=== PATIENT | male | born 1985 | race African-American/Black ===

== ENCOUNTER 2017-07-17 15:00 | Emergency (ER) | payer MEDICARE, MEDICAID ==
[2017-07-17 15:48] VITALS: BP 134/85
--- NOTE | 2017-07-17 16:42 | UC ---
Mahin Pak Natalie, scribed for Venancio Carney MD on 07/17/17 at 1601 . Throat Pain/Nasal James HPI - HPI Summary HPI Summary: The patient is a 32 y/o M presenting to [facility] c/o sore throat that began on 07/10. He additionally c/o difficulty swallowing and occasional cough. Patient denies fevers and chills. PMHx: HTN, seizures, diabetes. No smoking, occasional alcohol. - History of Current Complaint Chief Complaint: UCRespiratory Stated Complaint: SORE THROAT Time Seen by Provider: 07/17/17 15:43 Hx Obtained From: Patient Onset/Duration: Sudden Onset, Lasting Days - starting 07/10/17, Still Present Severity: Mild Pain Intensity: 0 Pain Scale Used: 0-10 Numeric Associated Signs & Symptoms: Positive: Other - POSITIVE: difficulty swallowing, occasional cough; NEGATIVE: fevers, chills - Allergies/Home Medications Allergies/Adverse Reactions: Allergies Allergy/AdvReac Type Severity Reaction Status Date / Time MS Penicillins [Penicillins] Allergy Unknown Unknown Verified 07/17/17 15:48 Reaction Details Home Medications: Home Medications Losartan TAB* [Cozaar TAB*] 100 mg PO DAILY 07/17/17 [History Confirmed 07/17/17 ] amLODIPine TAB* [Norvasc 5 mg TAB*] 2.5 mg PO DAILY 07/17/17 [History Confirmed 07/17/17] PMH/Surg Hx/FS Hx/Imm Hx Endocrine History: Diabetes Cardiovascular History: Hypertension Neurological History: Seizures - Surgical History Surgical History: Yes Surgery Procedure, Year, and Place: TONSILLECTOMY. BILATERAL LEG SURGERY - Family History Known Family History: Positive: Diabetes - Social History Alcohol Use: Occasionally Substance Use Type: Marijuana Substance Use Comment - Amount & Last Used: been a least a year Smoking Status (MU): Never Smoked Tobacco Review of Systems Constitutional: Other - NEGATIVE: fevers, chills ENT: Sore Throat, Other - difficulty swallowing Respiratory: Cough All Other Systems Reviewed And Are Negative: Yes Physical Exam - Summary Physical Exam Summary: VITAL SIGNS: Reviewed. GENERAL: Patient is a well-developed and nourished male who is lying comfortable in the stretcher. Patient is not in any acute respiratory distress. HEAD AND FACE: Normocephalic EYES: PERRLA, EOMI x 2. EARS: Hearing grossly intact. MOUTH: Erythema in pharynx, no exudates. NECK: Supple, trachea is midline, no adenopathy, no JVD, no carotid bruit. CHEST: Symmetric, no tenderness at palpation LUNGS: Clear to auscultation bilaterally. No wheezing or crackles. CVS: Regular rate and rhythm, S1 and S2 present, no murmurs or gallops appreciated. ABDOMEN: Soft, non-tender. Bowel sounds are normal. No abdominal abnormal pulsations. EXTREMITIES: Full ROM in all major joints, no edema, no cyanosis or clubbing. Short limbs. NEURO: Alert and oriented x 3. No acute neurological deficits. Speech is normal and follows commands. SKIN: Dry and warm Triage Information Reviewed: Yes Vital Signs: Initial Vital Signs Temp 97.9 F 07/17/17 15:43 Pulse 98 07/17/17 15:43 Resp 18 07/17/17 15:43 BP 134/85 07/17/17 15:43 Pulse Ox 98 07/17/17 15:43 Vital Signs Reviewed: Yes Throat Pain/Nasal Course/Dx - Course Course Of Treatment: The patient is a 32 y/o M presenting to [facility] c/o sore throat that began on 07/10/17. He additionally c/o difficulty swallowing and occasional cough. Patient denies fevers and chills. PMHx: HTN, seizures, diabetes. No smoking, occasional alcohol. Blood pressure over 120/80: The patient was found to have increased BP in UC. The patient will follow up with PCP for better control of BP. Strep test is negative. Symptoms are likely due to viral pharyngitis. He will be prescribed Ibuprofen. Patient will be dischaged home with prescription. I discussed all the findings and test results with the patient. Patient was instructed to return to the urgent care or go to ER immediately if any of the symptoms return or worsens. Plan of care was discussed with the patient, and patient understands and agrees. All questions were answered to patient satisfaction. There were no further complaints or concerns. - Differential Dx/Diagnosis Provider Diagnoses: viral pharyngitis Discharge - Sign-Out/Discharge Documenting (check all that apply): Discharge/Admit/Transfer - Discharge Plan Condition: Stable Disposition: HOME Prescriptions: Ibuprofen TAB* [Motrin TAB* 600 MG] 600 mg PO Q8H PRN #30 tab PRN Reason: Pain Patient Education Materials: Pharyngitis (ED) Referrals: Maddy Regan MD [Primary Care Provider] - Additional Instructions: FOLLOW UP WITH YOUR PRIMARY CARE PROVIDER WITHIN ONE WEEK FOR HIGH BLOOD PRESSURE NOTED TODAY. RETURN TO URGENT CARE OR THE ED FOR ANY WORSENING OR NEW SYMPTOMS. - Billing Disposition and Condition Condition: STABLE Disposition: HOME The documentation as recorded by the Mahin armstrong Natalie accurately reflects the service I personally performed and the decisions made by , Venancio Carney MD.
== END 2017-07-17 16:24 | disposition home or self-care (01) ==
LOC: UCEAST 15:00
DX: J02.8 Acute pharyngitis due to other specified organisms (principal); E11.9 Type 2 diabetes mellitus without complications; Z79.84 Long term (current) use of oral hypoglycemic drugs; I10 Essential (primary) hypertension; R56.9 Unspecified convulsions; Z88.0 Allergy status to penicillin
CPT/HCPCS: 87651; 99212; G0463

== ENCOUNTER 2019-06-02 19:01 | Emergency (ER) | payer OTHER ==
--- OUTSIDE RECORDS SUMMARY | 2019-06-02 19:06 | XMS REPORT | Summary of Care ---
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 Reason for Visit Reason Comments Follow Up pt presents for follow up with diabetes Encounter Details Date Type Department Care Team Description 04/05/2019 Office Visit Rob Regan, Uncontrolled type 2 diabetes mellitus with retinopathy (HCC) (Primary Dx); Practice MD Maddy Essential hypertension [address] [place], [place] [id number] [place] [address] [phone] Allergies Active Allergy Reactions Severity Noted Date Comments Nuts Rash 08/15/2014 Penicillins 04/03/2007 RASH documented as of this encounter (statuses as of 04/05/2019) Medications Medication Sig Dispensed Refills Start Date End Date Status divalproex (DEPAKOTE Take 250 mg by 0 Active ER) 250 MG PO TB24 mouth TWICE DAILY. albuterol Take 2 Puff by 0 Active (PROVENTIL,VENTOLIN) inhalation PRN 90 MCG/ACT IN AERS ONETOUCH DELICA 1 Each by Does not 200 Each 5 08/21/2013 Active LANCETS Does not apply route FOUR apply Misc TIMES DAILY. Uses FOUR times daily 250.01 BD ULTRA-FINE PEN USE DIRECTED 100 Each 08/08/2018 Active NEEDLES 29G X 12.7MM Does not apply MiscIndications: Type 2 diabetes mellitus without complication (HCC) Blood Glucose 1 Each by Does not 1 Each 0 09/28/2018 Active Monitoring Suppl apply route FOUR (FREESTYLE LITE) Does TIMES DAILY. E11.8 not apply Device insulin dependant Glucose Blood In 1 Each by In Vitro 400 Each 3 09/28/2018 Active Vitro Strip route FOUR TIMES DAILY. E11.8 Insulin dependant Insulin Glargine Inject 10 Units 15 mL 3 11/22/2018 Active (BASAGLAR KWLACY) beneath the skin 100 UNIT/ML EVERY MORNING. Subcutaneous Solution Pen-injector JANUVIA 25 MG Oral TAKE 1 TABLET BY 30 Tab 1 03/04/2019 Active Tab MOUTH ONCE DAILY Losartan TAKE 1 TABLET BY 90 Tab 1 03/15/2019 Active Potassium-HCTZ MOUTH ONCE DAILY AT 100-12.5 MG Oral Tab 2 PM metFORMIN HCL 1000 MG TAKE 1 TABLET BY 180 Tab 0 03/25/2019 Active Oral Tab MOUTH TWICE DAILY amLodipine (NORVASC) TAKE 1 TABLET BY 90 Tab 0 04/03/2019 Active 2.5 MG Oral Tab MOUTH ONCE DAILY documented as of this encounter (statuses as of 04/05/2019) Active Problems Problem Noted Date Obesity 05/06/2013 Overview: Patient is short stature so BMI is not accurate for him. He does not appear to be obese. Uncontrolled type 2 diabetes mellitus with retinopathy 11/12/2010 Seizure disorder 03/09/2007 Asthma, mild intermittent 03/09/2007 Short stature 03/09/2007 Overview: Has no knees--very short limbs. Caudal regression syndrome Overview: under developed LE Mild nonproliferative diabetic retinopathy documented as of this encounter (statuses as of 04/05/2019) Immunizations Name Administration Dates Next Due DTAP Vaccine 08/16/1990, 10/20/1987, 1985, 1986, 1985 HIB 02/24/1988 Hepatitis B Vaccine 12/09/1997, 11/11/1996, 10/11/1995 Influenza Virus Vaccine - Whole 12/30/2003 MENINGOCOCCAL CONJUGATE VACCINE 08/30/2004 MMR VACCINE 08/20/1990, 10/20/1987 PNEUMOCOCCAL POLYSACCHARIDE VACCINE 09/10/2018 Poliomyelitis vaccine 08/20/1990, 10/20/1987, 1986, 1986 TDAP Vaccine 08/18/2009 TETANUS & DIPHTHERIA TOXOID (OVER 7 06/20/2000 YRS) Varicella Vaccine Live 10/04/1994 documented as of this encounter Social History Tobacco Use Types Packs/Day Years Used Date Never Smoker Smokeless Tobacco: Never Used Alcohol Use Drinks/Week oz/Week Comments Yes 0 Standard drinks or equivalent 0.0 seldom Sex Assigned at Date Recorded Not on file Job Start Date Occupation Industry Not on file Not on file Not on file Travel History Travel Start Travel End No recent travel history available. documented as of this encounter Last Filed Vital Signs Vital Sign Reading Time Taken Comments Blood Pressure 144/90 04/05/2019 2:53 PM EST Pulse 109 04/05/2019 2:53 PM EST Temperature - - Respiratory Rate - - Oxygen Saturation 99% 04/05/2019 2:53 PM EST Inhaled Oxygen Concentration - - Weight 58.1 kg (128 lb 1.6 oz) 04/05/2019 2:53 PM EST Height - - Body Mass Index 56.29 02/14/2019 11:53 AM EST documented in this encounter Patient Instructions Patient InstructionsMaddy Regan MD - 04/05/2019 2:40 PM EST1. Check sugar 2 times a day: before breakfast and before dinner. Fasting sugar should be below 110,and non fasting below 140 (if checked at least 2 hours after meal) 2. Follow up in 1 week for physical with sugar diary documented in this encounter Progress Notes Maddy Regan MD - 04/05/2019 2:40 PM EST PATIENT: Alan Ibarra : 1985 DATE OF SERVICE: 04/05/2019 SUBJECTIVE: 34-y.o. male for follow up of diabetes. Diabetic Review of Systems - medication compliance: compliant all of the time, diabetic diet compliance: noncompliant some of the time, home glucose monitoring: is performed sporadically. Other symptoms and concerns: BP is elevated today. Past Medical History: Diagnosis Date Caudal regression syndrome under developed LE DM w/o complication type II 11/12/2010 Mild nonproliferative diabetic retinopathy (HCC) Other convulsions 03/09/2007 Dr. Adrian. No seizures for several years Unspecified asthma(493.90) 03/09/2007 Current Outpatient Medications Medication Sig albuterol (PROVENTIL,VENTOLIN) 90 MCG/ACT IN AERS Take 2 Puff by inhalation PRN amLodipine (NORVASC) 2.5 MG Oral Tab TAKE 1 TABLET BY MOUTH ONCE DAILY BD ULTRA-FINE PEN NEEDLES 29G X 12.7MM Does not apply Misc USE DIRECTED Blood Glucose Monitoring Suppl (FREESTYLE LITE) Does not apply Device 1 Each by Does not apply route FOUR TIMES DAILY. E11.8 insulin dependant divalproex (DEPAKOTE ER) 250 MG PO TB24 Take 250 mg by mouth TWICE DAILY. Glucose Blood In Vitro Strip 1 Each by In Vitro route FOUR TIMES DAILY. E11.8 Insulin dependant Insulin Glargine (BASAGLAR KWIKPEN) 100 UNIT/ML Subcutaneous Solution Pen -injector Inject 10 Units beneath the skin EVERY MORNING. JANUVIA 25 MG Oral Tab TAKE 1 TABLET BY MOUTH ONCE DAILY Losartan Potassium-HCTZ 100-12.5 MG Oral Tab TAKE 1 TABLET BY MOUTH ONCE DAILY AT 2 PM metFORMIN HCL 1000 MG Oral Tab TAKE 1 TABLET BY MOUTH TWICE DAILY ONETOUCH DELICA LANCETS Does not apply Misc 1 Each by Does not apply route FOUR TIMES DAILY. Uses FOUR times daily 250.01 No current facility-administered medications for this visit. OBJECTIVE: BP (!) 144/90 (BP Location: Right arm, Patient Position: Sitting) | Pulse 109 | Wt 128 lb 1.6 oz (58.1 kg) | SpO2 99% | BMI 56.29 kg/m General appearance: alert, well appearing, and in no distress. CMP - elevated sugar, FLP - good, HGA1C - elevated Component Latest Ref Rng & Units 02/14/2019 02/14/2019 02/14/2019 12:20 PM 12:20 PM 12:20 PM Sodium 134 - 145 mmol/L 138 Potassium 3.5 - 5.1 mmol/L 3.7 Chloride 98 - 107 mmol/L 100 CO2 22 - 30 mmol/L 24 Calcium 8.3 - 10.1 mg/dl 9.0 Albumin 3.5 - 5.0 g/dl 3.9 BUN 9 - 20 mg/dl 14 Creatinine 0.8 - 1.5 mg/dl 0.6 (L) Glucose (Lab) 70 - 99 mg/dl 146 (H) Protein,Total 6.3 - 8.2 g/dl 7.6 Total Bilirubin 0.0 - 1.1 MG/DL 0.6 AST 17 - 59 U/L 26 ALT 21 - 72 U/L 15 (L) ALKALINE PHOSPHATASE 40 - 150 U/L 42 eGFR See Interpretation Below ml/min/1.73ml Sq >60 BUN/Creatinine Ratio 6 - 22 RATIO 23 (H) Anion Gap 3 - 11 mmol/L 14 (H) A/G Ratio 0.8 - 2.0 ratio 1.1 Cholestrol <200 mg/dl 149 HDL >40 mg/dl 43 Triglycerides <150 mg/dl 79 LDL Cholesterol <100 MG/DL 90 Cholesterol / HDL Ratio RATIO 3.5 LDL / HDL Ratio 2.1 Non-HDL Cholesterol 0 - 130 MG/DL 106 Patient Fasting: Yes Glycohemoglobin - POCT <=5.6 % 8.3 (H) I have recommended the following steps for improving diabetic care and outcome to him: diabetic dietdiscussed , home glucose monitoring emphasized, glycohemoglobin and other lab monitoring discussed and detention diabetic complications discussed. 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 ICD-9-CM ICD-10-CM 1. Uncontrolled type 2 diabetes mellitus with retinopathy (HCC) 250.52 E11.319 362.01 E11.65 2. Essential hypertension Will recheck next visit 401.9 I10 Patient Instructions 1. Check sugar 2 times a day: before breakfast and before dinner. Fasting sugar should be below 110,and non fasting below 140 (if checked at least 2 hours after meal) 2. Follow up in 1 week for physical with sugar diary Author: Maddy Regan MD 04/05/2019 15:12 documented in this encounter Plan of Treatment Date Type Specialty Care Team Description 04/17/2019 Office Visit Family Practice Maddy Regan MD [address] [place] [address] [phone] 09/12/2019 Office Visit Endocrinology Cherelle Bates NP [address] [address] Health Maintenance Due Date Last Done Comments HEMOGLOBIN A1C 05/16/2019 02/14/2019, 11/06/2018, 07/12/2018, Additional history exists DTaP/Tdap/Td Vaccines (8 - 08/19/2019 08/18/2009, 06/20/2000, Tdap) 08/16/1990, Additional history exists DEPRESSION SCREENING 11/07/2019 11/06/2018 Diabetic Eye Exam 01/17/2020 01/16/2019, 01/15/2019, 01/15/2019, Additional history exists FOOT EXAM 03/14/2020 03/14/2019, 03/14/2019, 03/14/2019, Additional history exists MENINGOCOCCAL VACCINE IMM Completed 08/30/2004 PNEUMOCOCCAL 0-64 YRS Completed 09/10/2018 HEPATITIS A IMMUNIZATION Aged Out No longer eligible SERIES based on patient's age to complete this topic HPV IMMUNIZATION SERIES Aged Out No longer eligible based on patient's age to complete this topic documented as of this encounter Goals Goal Patient Goal Associated Recent Patient-Stated? Author Type Problems Progress Blood Pressure Blood Pressure 144/90 Ivett Regan, < 140/90 (04/05/2019 Maddy, 2:53 PM EST) Note: This is an individualized treatment (blood pressure) goal for Alan Ibarra: Displayed above (on the left) is your goal for blood pressure control. Your most recent blood pressure is also shown above, on the right. You should try to achieve blood pressures that are lower than your goal listed above (on the left). Glycohemoglobin A1c < 7.0 Diabetes 8.3 (02/14/2019 12:20 Maddy Garcia, PM EST) Note: This is an individualized treatment (diabetes control, HgbA1C) goal for Alan Ibarra: Displayed above is your progress towards your HgbA1C goal. Your goal is shown above (on the left); your most recent HgbA1C is shown on the right. Note that lower numbers are better. Weight loss vs. 18 mo Lifestyle 0.8 (04/05/2019 2:53 PM Maddy Garcia MD max (lbs) >= 10 EST) Note: This is an individualized lifestyle goal for Alan Ibarra: Your body mass index (BMI) is more than 30. You should lose weight. A reasonable starting goal is to lose 10 pounds. Displayed above is how many pounds you have lost thus far towards your 10 pound weight loss goal. Keep immunizations current Lifestyle Maddy Garcia MD Note: This is an individualized lifestyle goal for Alan Ibarra: Please be sure to keep up-to-date on recommended immunizations. For example, this would include a yearly influenza vaccine. Immunization status can be seen by looking at the Health Maintenance sections of your [facility], Plan of Care, and any After Visit Summaries. Take all prescribed medications as Self-management No Maddy Regan MD directed Note: This is an individualized self-management goal for Alan Ibarra: Please take all prescribed medications as directed. 1. Do not skip doses. If you cannot afford your medications, talk with your doctor. 2. Use a pill reminder system such as a pill box if needed. Your pharmacist can help you with this. 3. Contact your Pharmacy 5 days before your medication runs out. If you cannot take your medications for any reasons, talk with your doctor. 4. Please bring all of your medication bottles and inhalers (or a list of all your medications/inhalers) with you to every visit. Potential barriers to meeting all of your care plan goals will continue to be addressed on an ongoing basis. documented as of this encounter Results Not on filedocumented in this encounter Visit Diagnoses Diagnosis Uncontrolled type 2 diabetes mellitus with retinopathy (HCC) Essential hypertension Unspecified essential hypertension documented in this encounter Guarantor Name Account Type Relation to Date of Phone Billing Patient Address Alan Ibarra Personal/Family 1985 [address] (Home) [place], [place] [phone] [id number] (Work) documented as of this encounter"
--- OUTSIDE RECORDS SUMMARY | 2019-06-02 19:06 | XMS REPORT | Summary of Care ---
:1985 Author Organization [facility] Address [address] [place] [address] Care Team Providers Name Role Phone Maddy Regan Primary Care Provider Alan Gan MD Primary Employment Director/[employer] Supervisor Reason for Referral MRI/CAT/PET Scan (Routine) Status Reason Specialty Diagnoses / Referred By Referred To Procedures Contact Contact Authorized Diagnoses Abnormal testicular exam Jass, Samuel US TESTICULAR WITH DOPPLER MD Maddy [address] [place] [address] Reason for Visit Reason Comments Physical annual Encounter Details Date Type Department Care Team Description 05/17/2019 Office Visit [facility] Jass Sports physical (Primary Dx); Practice MD Maddy 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 albuterol Take 2 Puff by 0 Active (PROVENTIL,VENTOL inhalation PRN IN) 90 MCG/ACT IN AERS ONETOUCH DELICA 1 Each by Does 200 Each 5 08/21/2013 Active LANCETS Does not not apply route apply Misc FOUR TIMES DAILY. Uses FOUR times daily 250.01 BD ULTRA-FINE PEN USE DIRECTED 100 Each 6 08/08/2018 Active NEEDLES 29G X 12.7MM Does not apply MiscIndications: Type 2 diabetes mellitus without complication (HCC) Blood Glucose 1 Each by Does 1 Each 0 09/28/2018 Active Monitoring Suppl not apply route (FREESTYLE LITE) FOUR TIMES Does not apply DAILY. E11.8 Device insulin dependant Glucose Blood In 1 Each by In 400 Each 3 09/28/2018 Active Vitro Strip Vitro route FOUR TIMES DAILY. E11.8 Insulin dependant Insulin Glargine Inject 10 Units 15 mL 3 11/22/2018 Active (BASAGLAR beneath the KWIKPEN) 100 skin EVERY UNIT/ML MORNING. Subcutaneous Solution Pen-injector Losartan TAKE 1 TABLET 90 Tab 1 03/15/2019 Active Potassium-HCTZ BY MOUTH ONCE 100-12.5 MG Oral DAILY AT 2 PM Tab metFORMIN HCL TAKE 1 TABLET 180 Tab 0 03/25/2019 Active 1000 MG Oral Tab BY MOUTH TWICE DAILY amLodipine TAKE 1 TABLET 90 Tab 0 04/03/2019 Active (NORVASC) 2.5 MG BY MOUTH ONCE Oral Tab DAILY Alogliptin Take 12.5 mg by 30 Tab 1 05/13/2019 Active Benzoate 12.5 MG mouth DAILY. Oral Tab JANUVIA 25 MG TAKE 1 TABLET 30 Tab 1 03/04/2019 Discontinued Oral Tab BY MOUTH ONCE 0 (Alternative DAILY Therapy) documented as of this encounter (statuses as of 05/17/2019) Active Problems Problem Noted Date Obesity 05/06/2013 [...] as of this encounter (statuses as of 05/17/2019) Immunizations Name Administration Dates Next Due DTAP [...] Assigned at Date Recorded Not on file documented as of this encounter Last Filed Vital Signs Vital Sign Reading Time Taken Comments Blood Pressure 120/80 05/17/2019 2:33 PM EDT Pulse 108 05/17/2019 2:33 PM EDT Temperature 37.4 05/17/2019 2:33 PM EDT C (99.3 F) Respiratory Rate - - Oxygen Saturation 98% 05/17/2019 2:33 PM EDT Inhaled Oxygen Concentration - - Weight 58.3 kg (128 lb 9.6 oz) 05/17/2019 2:33 PM EDT Height 109.2 cm (3' 7") 05/17/2019 2:33 PM EDT Body Mass Index 48.9 05/17/2019 2:33 PM EDT documented in this encounter Patient Instructions Patient InstructionsMaddy Regan MD - 05/17/2019 2:20 PM EDT1. Schedule scrotal USElectronically signed by Maddy Regan MD at 2019 3:16 PM EDT documented in this encounter Progress Notes Maddy Regan MD - 05/17/2019 2:20 PM EDT Patient: Alan Ibarra Date of Service: 05/17/2019 Subjective: Alan Ibarra is a 34-y.o. male who presents for Chief Complaint Patient presents with ? Physical annual Patient comes for physical for special [employer] No chest pains, no SOB, palpitations No seizures since early . Follows with neurology once a year Reports improve sugars on Alogliptin he started several days ago Due for HGA1C Past Medical History: Diagnosis Date ? Caudal regression syndrome under developed LE ? DM w/o complication type II 11/12/2010 ? Mild nonproliferative diabetic retinopathy (HCC) ? Other convulsions 03/09/2007 Dr. Adrian. No seizures for several years ? Unspecified asthma(493.90) 03/09/2007 Outpatient Medications as of 05/17/2019 Medication Sig Dispense Refill ? albuterol (PROVENTIL,VENTOLIN) 90 MCG/ACT IN AERS Take 2 Puff by inhalation PRN ? Alogliptin Benzoate 12.5 MG Oral Tab Take 12.5 mg by mouth DAILY. 30 Tab 1 ? amLodipine (NORVASC) 2.5 MG Oral Tab TAKE 1 TABLET BY MOUTH ONCE DAILY 90 Tab 0 ? BD ULTRA-FINE PEN NEEDLES 29G X 12.7MM Does not apply Misc USE DIRECTED 100 Each 6 ? Blood Glucose Monitoring Suppl (FREESTYLE LITE) Does not apply Device 1 Each by Does not apply route FOUR TIMES DAILY. E11.8 insulin dependant 1 Each 0 ? divalproex (DEPAKOTE ER) 250 MG PO TB24 Take 250 mg by mouth TWICE DAILY. ? Glucose Blood In Vitro Strip 1 Each by In Vitro route FOUR TIMES DAILY. E11.8 Insulin dependant 400 Each 3 ? Insulin Glargine (BASAGLAR KWIKPEN) 100 UNIT/ML Subcutaneous Solution Pen-injector Inject 10Units beneath the skin EVERY MORNING. 15 mL 3 ? Losartan Potassium-HCTZ 100-12.5 MG Oral Tab TAKE 1 TABLET BY MOUTH ONCE DAILY AT 2 PM 90 Tab 1 ? metFORMIN HCL 1000 MG Oral Tab TAKE 1 TABLET BY MOUTH TWICE DAILY 180 Tab 0 ? ONETOUCH DELICA LANCETS Does not apply Misc 1 Each by Does not apply route FOUR TIMES DAILY.Uses FOUR times daily 250.01 200 Each 5 No current facility-administered medications on file as of 05/17/2019. Allergies Allergen Reactions ? Nuts Rash ? Penicillins RASH Review of Systems: All remaining review of systems was negative. Objective: BP 120/80 (BP Location: Left arm, Patient Position: Sitting) Pulse 108 Temp 99.3 F (37.4 C) Ht 3' 7" (1.092 m) Wt 128 lb 9.6 oz (58.3 kg) SpO2 98 % BMI 48.9 kg/m2 GENERAL: alert, no distress HEAD: normocephalic, without obvious abnormality EYES: conjunctivae/corneas clear. Pupils equal, round, reactive to light. Equal ocular movements intact. EARS: normal tympanic membranes and external ear canals, bilaterally NOSE: Nares normal. Septum midline. Mucosa normal. No drainage or sinus tenderness. THROAT: lips, mucosa, and tongue normal: teeth and gums normal NECK: supple, symmetrical, trachea midline, no adenopathy and thyroid: not enlarged, symmetric, notenderness/mass/nodules BACK: negative LUNGS: clear to auscultation bilaterally HEART: regular rate and rhythm, S1, S2 normal, no murmur, click, rub or gallop ABDOMEN: soft, non-tender. Bowel sounds normal. No masses, no organomegaly MALE GENITALIA: penis: no lesions or discharge. testes: no masses or tenderness, second testicle is not clearly identified. no hernias EXTREMITIES: underdeveloped lower extrimities PULSES: 2+ and symmetric SKIN: Skin color, texture, turgor normal. No rashes or suspicious lesions. LYMPH NODES: cervical, supraclavicular, and axillary nodes normal. NEUROLOGIC: Grossly normal ICD-9-CM ICD-10-CM 1. Sports physical V70.3 Z02.5 2. 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 Seizure disorder (HCC) 345.90 G40.909 CBC WITH DIFFERENTIAL VALPROIC ACID 4. Abnormal testicular exam 796.4 R68.89 US TESTICULAR WITH DOPPLER Patient Instructions 1. Schedule scrotal US Author: Maddy Regan MD documented in this encounter Plan of Treatment Date Type Specialty Care Team Description 05/22/2019 Ancillary Procedure Radiology 09/12/2019 Office Visit Endocrinology Cherelle Bates, LEENA [address] [address] [phone] Name Type Priority Associated Diagnoses Date/Time COMPREHENSIVE METABOLIC Lab Routine Uncontrolled type 2 05/17/2019 3:39 PM PANEL diabetes mellitus with EDT retinopathy (HCC) GLYCOHEMOGLOBIN A1C Lab Routine Uncontrolled type 2 05/17/2019 3:39 PM diabetes mellitus with EDT retinopathy (HCC) CBC WITH DIFFERENTIAL Lab Routine Seizure disorder (HCC) 05/17/2019 3:39 PM EDT VALPROIC ACID Lab Routine Seizure disorder (HCC) 05/17/2019 3:39 PM EDT Name Type Priority Associated Diagnoses Order Schedule US TESTICULAR WITH Imaging Routine Abnormal testicular Expected: 05/17/2019 , DOPPLER exam Expires: 05/16/2020 Health Maintenance Due Date Last Done Comments [...] Type Problems Progress Blood Pressure Blood Pressure 120/80 Ivett Regan, < 140/90 (05/17/2019 Maddy, 2:33 PM EDT) Note: This is an individualized treatment (blood [...] better. Weight loss vs. 18 mo Lifestyle 0.3 (05/17/2019 2:33 PM No Maddy Regan MD max (lbs) >= 10 EDT) Note: This is an individualized lifestyle goal for Alan Ibarra: Your body mass index (BMI) is more than 30. You should lose weight. A reasonable starting goal is to lose 10 pounds. Displayed above is how many pounds you have lost thus far towards your 10 pound weight loss goal. Keep immunizations current Lifestyle No Maddy Regan MD Note: This is an individualized lifestyle [...] type 2 diabetes mellitus with retinopathy (HCC) Seizure disorder (HCC) Unspecified epilepsy without mention of intractable epilepsy Sports physical Other general medical examination for administrative purposes Abnormal testicular exam Other abnormal clinical finding documented in this encounter Guarantor Name Account Type Relation to Date of Phone Billing Patient Address Alan Ibarra Personal/Family 1985 [address] [place] (Home) [place], [place] [phone] [id number] (Work) documented as of this encounter
[2019-06-02 19:39] VITALS: BP 143/92
--- NOTE | 2019-06-02 19:41 | UC ---
Respiratory Complaint HPI - HPI Summary HPI Summary: Patient is a 34yo male presenting with "scratchy throat" and nonproductive cough x3 days. Notes mild nasal congestion. Denies loss of taste and smell. Denies sob and wheezing. Denies chest pain/discomfort. Denies fever, chills, body aches. Denies n/v/d. Notes normal appetite and fluid intake. Denies fatigue. Taking tylenol for symptom relief. Admits to having seasonal allergies and states this feels similar but adds he believes he has been exposed to a coworker who tested positive for covid-19. Patient states he would like testing for covid today. PMHx significant for htn, asthma, and seizures. - History of Current Complaint Stated Complaint: SCRATCHY THROAT, COUGH Time Seen by Provider: 06/02/19 19:11 Hx Obtained From: Patient - Allergies/Home Medications Allergies/Adverse Reactions: Allergies Allergy/AdvReac Type Severity Reaction Status Date / Time MS Penicillins [Penicillins] Allergy Unknown Unknown Verified 06/02/19 19:20 Reaction Details Home Medications: Home Medications Divalproex Sodium [Depakote] 125 mg PO 03/18/12 [History Confirmed 08/07/12] Metformin HCl 500 mg PO 03/18/12 [History Confirmed 08/07/12] Ibuprofen TAB* [Motrin TAB* 600 MG] 600 mg PO Q8H PRN #30 tab 07/17/17 [Rx Confirmed 06/02/19] Losartan TAB* [Cozaar TAB*] 100 mg PO DAILY 07/17/17 [History Confirmed 06/02/19 ] amLODIPine TAB* [Norvasc 5 mg TAB*] 2.5 mg PO DAILY 07/17/17 [History Confirmed 06/02/19] PMH/Surg Hx/FS Hx/Imm Hx Cardiovascular History: Hypertension Neurological History: Seizures - Surgical History Surgical History: Yes Surgery Procedure, Year, and Place: TONSILLECTOMY. BILATERAL LEG SURGERY - Family History Known Family History: Positive: Diabetes - Social History Alcohol Use: Occasionally Substance Use Type: Marijuana Substance Use Comment - Amount & Last Used: been a least a year Smoking Status (MU): Never Smoked Tobacco Review of Systems All Other Systems Reviewed And Are Negative: Yes Constitutional: Positive: Negative ENT: Positive: Sore Throat, Sinus Congestion Respiratory: Positive: Cough. Negative: Shortness Of Breath Cardiovascular: Positive: Negative Gastrointestinal: Positive: Negative Musculoskeletal: Positive: Negative. Negative: Myalgia Neurological/Mental Status: Positive: Headache Physical Exam - Summary Physical Exam Summary: Vital Signs Reviewed: Yes A+Ox3, no distress, well-appearing Eyes: Conjunctiva Clear ENT: Hearing grossly normal, TM x 2 clear, moist, uvula midline, no exudate, no erythema, no tonsillar swelling, +PND Neck: Positive: Supple, no LAD Respiratory: Positive: No respiratory distress, No accessory muscle use + CTA throughout no w/r Cardiovascular: RRR nl s1, s2 no m/r Musculoskeletal Exam: BROCK x 4 without difficulty Neurological: Positive: Alert Psychological: Positive: age appropriate behavior Skin: Positive: no rash, no ecchymosis Vital Signs: Initial Vital Signs Temp 98.4 F 06/02/19 19:37 Pulse 87 06/02/19 19:37 Resp 17 06/02/19 19:37 BP 143/92 06/02/19 19:37 Pulse Ox 98 06/02/19 19:37 Lab Results 06/02/19 06/02/19 Range/Units 19:40 19:43 Influenza A (Rapid) Negative (Negative) Influenza B (Rapid) Negative (Negative) Group A Strep Rapid Negative (Negative) Respiratory Course/Dx - Course Course Of Treatment: Flu and strep tests were negative. Discussed allergic vs viral etiology of symptoms. I discussed results with the patient and informed him that he would receive the covid19 results from the health department within the next 3-5 days. I discussed self quarantining until results had been received from the health Department. Instructed to go to the ED if he experiences worsening shortness of breath/difficulty breathing. Patient voiced understanding and agreed with treatment plan. All questions answered to the best of my abilities. - Differential Dx/Diagnosis Differential Diagnosis/HQI/PQRI: Asthma, Bronchitis, Influenza, Sinusitis Provider Diagnosis: Viral URI with cough, Pharyngitis Discharge ED - Sign-Out/Discharge Documenting (check all that apply): Patient Departure All imaging exams completed and their final reports reviewed: No Studies - Discharge Plan Condition: Stable Disposition: HOME Patient Education Materials: Pharyngitis (ED), Upper Respiratory Infection (ED) Forms: COVID-19 Tested & Isolation Referrals: Maddy Regan MD [Primary Care Provider] - Additional Instructions: As discussed, your flu and strep tests were negative today. You also received testing for covid-19 today. You will be notified of the results by the Health Department within 3-5 days. You need to self-quarantine for the next 14 days unless otherwise advised by a healthcare provider. This means staying home and no contact with anyone who lives with you. You should not share your bedroom or bathroom. Food should be left outside your door for you to take once the other person has walked away. You may continue with tylenol. You may also take allergy medication, such as Zyrtec or Claritin to help alleviate possible allergy symptoms. Increase your fluid intake. Go to the nearest emergency room or call 911 if you experience new or worsening symptoms. - Billing Disposition and Condition Condition: STABLE Disposition: Home
[2019-06-02 19:54] LABS: Influenza A Molecular Negative (Negative); Influenza B Molecular Negative (Negative)
== END 2019-06-02 20:00 | disposition home or self-care (01) ==
LOC: UCEAST 19:01
DX: J06.9 Acute upper respiratory infection, unspecified (principal); R05 Cough; J02.9 Acute pharyngitis, unspecified; Z20.828 Contact with and (suspected) exposure to other viral communicable diseases; I10 Essential (primary) hypertension; R56.9 Unspecified convulsions; Z79.899 Other long term (current) drug therapy; Z88.0 Allergy status to penicillin
CPT/HCPCS: 87635; 87651; 99201; G0463